=== PATIENT | male | born 1950 | race Caucasian/White ===

== ENCOUNTER 2017-03-27 04:28 | Emergency (ER) | payer OTHER ==
[~2017-03-27] VITALS: Ht 172.7 cm; Wt 86.3 kg
[~2017-03-27 04:28] MED LIST: ACET-2178 PO; ALEN70TA46 PO; AMLO10TA80 PO; AMOX125S8 PO; CALCIUM CITRATE PO; CHOL20004 PO; DOXY100C2 PO; FURO20TA4 PO; GABA-531 PO; MELA3TAB PO; METH10TA2 PO; METH500T PO; MIRT15TA6 PO; OXYC-579 PO; QUET100T PO; SENN-22 PO; TIOT18CA3 IH; VITD PO
[2017-03-27 04:30] VITALS: BP 134/80
[2017-03-27] MEDS ORDERED: ASPIRIN 81MG TABLET PO ONE (05:00)
[2017-03-27] MEDS ORDERED: FUROSEMIDE 40MG/4ML VIAL IV ONE (05:00)
[2017-03-27] MEDS ORDERED: NITROGLYCERIN OINT 1GM/INCH UDPKT TD ONE (05:00)
[2017-03-27 05:30] LABS: BASOPHILS % 0.6 % (0.0-2.0); EOSINOPHILS % 2.1 % (0.0-5.0); HEMATOCRIT. 41.3 % (42.0-52.0); HEMOGLOBIN. 13.9 g/dL (14.0-18.0); LYMPHOCYTES % 23.9 % (20.0-50.0); MEAN CORPUSCULAR HEMOGLOBIN 27.1 pg (28.0-32.0); MEAN CORPUSCULAR VOLUME 80.7 fL (80.0-94.0); MEAN PLATELET VOLUME 9.2 fl (7.4-10.4); MONOCYTES % 10.4 % (2.0-8.0); PLATELET 190 x1000/uL (130-400); RED BLOOD CELL COUNT 5.11 mill/uL (4.7-6.1); RED CELL DISTRIBUTION WIDTH 16.2 % (11.6-14.6)
[2017-03-27 05:38] LABS: PROTHROMBIN TIME 10.3 sec (9.4-11.6)
[2017-03-27 05:51] LABS: CARBON DIOXIDE 31 mEq/L (21-32); CHLORIDE 101 mEq/L (98-107)
[2017-03-27 06:01] LABS: ETHANOL BLOOD < 10 mg/dL; TROPONIN I < 0.02 ng/mL (0.00-0.04)
== END 2017-03-27 06:37 | disposition home or self-care (01) ==
LOC: ER 04:28 → CANBEDREQ 06:47
DX: R07.9 Chest pain, unspecified (principal); I11.0 Hypertensive heart disease with heart failure; I50.9 Heart failure, unspecified; J44.9 Chronic obstructive pulmonary disease, unspecified; F17.200 Nicotine dependence, unspecified, uncomplicated
CPT/HCPCS: 36415; 71010; 80053; 83690; 83880; 84484; 85025; 85610; 93005; 96374; 99285; G0482; J1940